=== PATIENT | female | born 1985 | race Caucasian/White ===

== ENCOUNTER 2024-07-27 13:20 | Inpatient (IN) | payer MEDICAID, SELFPAY ==
[~2024-07-27] VITALS: Ht 170.2 cm; Wt 79.2 kg
[2024-07-27 14:15] LABS: HEMATOCRIT 39.4 % (36.0-47.0); HEMOGLOBIN 12.9 g/dl (12.0-15.5); MEAN CORPUSCULAR HEMOGLOBIN 28.7 pg (27.0-33.0); MEAN CORPUSCULAR HGB CONC 32.7 g/dl (32.0-36.5); MEAN CORPUSCULAR VOLUME 87.6 fl (80.0-96.0); PLATELET COUNT, AUTOMATED 239 10^3/uL (150-450); WHITE BLOOD COUNT 3.6 10^3/uL (4.0-10.0)
[2024-07-27 14:46] LABS: AMPHETAMINES LEVEL URINE NEGATIVE (NEGATIVE); BARBITURATES URINE NEGATIVE (NEGATIVE); BENZODIAZEPINES URINE NEGATIVE (NEGATIVE); ETHYL ALCOHOL (ETHANOL) < 0.003 % (0.000-0.010)
[2024-07-27 14:47] LABS: COCAINE METABOLITE URINE NEGATIVE (NEGATIVE); METHADONE URINE NEGATIVE (NEGATIVE); OPIATES URINE NEGATIVE (NEGATIVE); PHENCYCLIDINE URINE NEGATIVE (NEGATIVE)
[2024-07-27 14:48] LABS: ALBUMIN 3.9 G/DL (3.2-5.2); ALKALINE PHOSPHATASE 92 U/L (35-104); ALT/SGPT 16 U/L (7.0-40); AST/SGOT 20 U/L (<34); BILIRUBIN,DIRECT 0.1 MG/DL (<0.4); BILIRUBIN,TOTAL 0.4 MG/DL (0.3-1.2); BLOOD UREA NITROGEN 15 MG/DL (9-23); CALCIUM LEVEL 8.6 MG/DL (8.5-10.1); CARBON DIOXIDE LEVEL 25 MMOL/L (20-31); CHLORIDE LEVEL 106 MMOL/L (98-107); CREATININE FOR GFR 0.65 MG/DL (0.55-1.30); GLOMERULAR FILTRATION RATE > 60.0 (>60); GLUCOSE, FASTING 85 MG/DL (60-100); POTASSIUM SERUM 4.1 MMOL/L (3.5-5.1); SALICYLATE LEVEL < 3.0 MG/DL (<30); SODIUM LEVEL 142 MMOL/L (136-145); TOTAL PROTEIN 7.5 G/DL (5.7-8.2)
[2024-07-27 14:49] LABS: CANNABINOIDS URINE POSITIVE (NEGATIVE)
[2024-07-27 14:51] LABS: THYROID STIMULATING HORMONE 2.184 uIU/ML (0.55-4.78)
[2024-07-27] MEDS ORDERED: HOME MED LIST COMPLETE! XX SCH (18:30)
[2024-07-27 18:32] LABS: HCG, SERUM QUALITATIVE NEGATIVE (NEGATIVE)
[2024-07-27] MEDS ORDERED: MOM 30ML SUSPENSION UDC PO PRN (19:20)
[2024-07-27] MEDS ORDERED: LORazepam 1 MG TAB PO PRN (19:20)
[2024-07-27] MEDS ORDERED: MAALOX 30 ML SUSP *UDC PO PRN (19:20)
[2024-07-27 21:00] VITALS: BP 111/89; TEMP 98; O2SAT 98
[2024-07-27] MEDS: traZODone 50 MG TAB PO PRN (21:32)
[2024-07-27] MEDS: ACETAMINOPHEN 325 MG TAB PO PRN (21:33)
[2024-07-28 06:32] VITALS: BP 108/59; TEMP 97.9; O2SAT 99
[2024-07-28] MEDS: NICOTINE 14 MG/24 HR TRANSDERMAL TD SCH (09:00)
[2024-07-28] MEDS: ESCITALOPRAM OXALATE 10 MG TAB (LEXAPRO) PO SCH (09:59)
[2024-07-28] MEDS ORDERED: CEPACOL LOZENGE PO PRN (13:25)
[2024-07-28] MEDS: LORATADINE 10 MG TAB PO ONE (14:39)
[2024-07-28 15:37] VITALS: BP 108/81; TEMP 97.4; O2SAT 98
[2024-07-28] MEDS: IBUPROFEN 400MG TAB PO PRN (19:05)
[2024-07-29 06:36] VITALS: BP 125/59; TEMP 97.9; O2SAT 97
[2024-07-29] MEDS: OLANZapine ORAL DISINTEGRATING TAB 5MG PO PRN (08:18)
[2024-07-29] MEDS: LORATADINE 10 MG TAB PO SCH (08:19)
[2024-07-29 16:48] VITALS: BP 104/63; TEMP 96.9; O2SAT 98
[2024-07-30 06:32] VITALS: BP 100/58; TEMP 97.6; O2SAT 99
[2024-07-30 15:47] VITALS: BP 132/83; TEMP 98.8; O2SAT 100
[2024-07-31 06:31] VITALS: BP 102/55; TEMP 97.5; O2SAT 98
[2024-07-31 15:17] VITALS: BP 109/71; TEMP 98.9; O2SAT 98
[2024-08-01 06:45] VITALS: BP 113/55; TEMP 97.4; O2SAT 98
[2024-08-01 15:16] VITALS: BP 129/75; TEMP 98.3; O2SAT 100
[2024-08-02 07:16] VITALS: BP 104/87; TEMP 98; O2SAT 97
[2024-08-02 17:44] VITALS: BP 126/67; TEMP 97.5; O2SAT 99
[2024-08-02] MEDS: LURASIDONE 20 MG TAB (LATUDA) PO SCH (18:08)
[2024-08-03 06:53] VITALS: BP 110/54; TEMP 97; O2SAT 99
[2024-08-03 15:52] VITALS: BP 124/80; TEMP 98.6; O2SAT 100
[2024-08-03 21:30] VITALS: BP 124/80; TEMP 98.6; O2SAT 100
[2024-08-04 06:39] VITALS: BP 130/64; TEMP 97.5; O2SAT 97
[2024-08-04 15:28] VITALS: BP 122/79; TEMP 98.4; O2SAT 99
[2024-08-04] MEDS: diphenhydrAMINE 25MG CAP PO PRN (20:21)
[2024-08-05 06:30] VITALS: BP 104/54; TEMP 97.7; O2SAT 96
[2024-08-05] MEDS: LURASIDONE 20 MG TAB (LATUDA) PO SCH (17:59)
[2024-08-06 06:31] VITALS: BP 110/50; TEMP 97.6; O2SAT 98
[2024-08-06] MEDS ORDERED: TRAZ-252 PO (10:54)
[2024-08-06] MEDS ORDERED: LEXA1TAB PO (10:54)
[2024-08-06] MEDS ORDERED: LATU20TA PO (10:54)
== END 2024-08-06 14:18 | disposition home or self-care (01) | DRG 751 ==
LOC: M ED 13:20 → M ED INP 19:20 → M PSY 20:54
PROVIDERS: ADMIT Psychiatry & Neurology Neurology; ATTEND Psychiatry & Neurology Neurology
DX: F33.1 Major depressive disorder, recurrent, moderate (principal); F41.1 Generalized anxiety disorder; R45.851 Suicidal ideations; F43.10 Post-traumatic stress disorder, unspecified; F17.200 Nicotine dependence, unspecified, uncomplicated; J45.909 Unspecified asthma, uncomplicated; Z83.3 Family history of diabetes mellitus; Z62.810 Personal history of physical and sexual abuse in childhood; Z81.8 Family history of other mental and behavioral disorders; Z91.52 Personal history of nonsuicidal self-harm; Z88.8 Allergy status to other drugs, medicaments and biological substances

== ENCOUNTER 2024-08-29 10:15 | Inpatient (IN) | payer MEDICAID, OTHER ==
[~2024-08-29] VITALS: Ht 170.2 cm; Wt 83.2 kg
[~2024-08-29 10:15] MED LIST: LATU20TA PO; LEXA1TAB PO; TRAZ-252 PO
[2024-08-29 10:50] LABS: HEMATOCRIT 39.1 % (36.0-47.0); HEMOGLOBIN 12.6 g/dl (12.0-15.5); MEAN CORPUSCULAR HEMOGLOBIN 29.1 pg (27.0-33.0); MEAN CORPUSCULAR HGB CONC 32.2 g/dl (32.0-36.5); MEAN CORPUSCULAR VOLUME 90.3 fl (80.0-96.0); PLATELET COUNT, AUTOMATED 282 10^3/uL (150-450); RED BLOOD COUNT 4.33 10^6/uL (4.00-5.40); WHITE BLOOD COUNT 6.5 10^3/uL (4.0-10.0)
[2024-08-29 11:16] LABS: AMPHETAMINES LEVEL URINE NEGATIVE (NEGATIVE); BARBITURATES URINE NEGATIVE (NEGATIVE); BENZODIAZEPINES URINE NEGATIVE (NEGATIVE); COCAINE METABOLITE URINE NEGATIVE (NEGATIVE); METHADONE URINE NEGATIVE (NEGATIVE); OPIATES URINE NEGATIVE (NEGATIVE); PHENCYCLIDINE URINE NEGATIVE (NEGATIVE)
[2024-08-29 11:17] LABS: CANNABINOIDS URINE POSITIVE (NEGATIVE); ETHYL ALCOHOL (ETHANOL) 0.004 % (0.000-0.010)
[2024-08-29 11:19] LABS: ALBUMIN 3.9 G/DL (3.2-5.2); ALKALINE PHOSPHATASE 95 U/L (35-104); ALT/SGPT 18 U/L (7.0-40); AST/SGOT 16 U/L (<34); BILIRUBIN,DIRECT 0.1 MG/DL (<0.4); BILIRUBIN,TOTAL 0.4 MG/DL (0.3-1.2); BLOOD UREA NITROGEN 10 MG/DL (9-23); CALCIUM LEVEL 8.9 MG/DL (8.5-10.1); CARBON DIOXIDE LEVEL 27 MMOL/L (20-31); CHLORIDE LEVEL 105 MMOL/L (98-107); CREATININE FOR GFR 0.66 MG/DL (0.55-1.30); GLOMERULAR FILTRATION RATE > 60.0 (>60); GLUCOSE, FASTING 87 MG/DL (60-100); POTASSIUM SERUM 3.8 MMOL/L (3.5-5.1); SALICYLATE LEVEL < 3.0 MG/DL (<30); SODIUM LEVEL 140 MMOL/L (136-145); TOTAL PROTEIN 7.5 G/DL (5.7-8.2)
[2024-08-29 11:21] LABS: HCG, SERUM QUALITATIVE NEGATIVE (NEGATIVE)
[2024-08-29 11:22] LABS: THYROID STIMULATING HORMONE 3.252 uIU/ML (0.55-4.78)
[2024-08-29] MEDS ORDERED: TRAZ-252 PO (21:31)
[2024-08-29] MEDS ORDERED: LEXA1TAB PO (21:31)
[2024-08-29] MEDS ORDERED: LURA20TA PO (21:31)
[2024-08-29] MEDS ORDERED: HOME MED LIST COMPLETE! XX SCH (21:35)
[2024-08-30] MEDS: NICOTINE 14 MG/24 HR TRANSDERMAL TD SCH (09:00)
[2024-08-30] MEDS: ESCITALOPRAM OXALATE 10 MG TAB (LEXAPRO) PO SCH (09:09)
[2024-08-30] MEDS ORDERED: MAALOX 30 ML SUSP *UDC PO PRN (15:20)
[2024-08-30] MEDS ORDERED: MOM 30ML SUSPENSION UDC PO PRN (15:20)
[2024-08-30] MEDS ORDERED: OLANZapine 5 MG TAB PO PRN (15:20)
[2024-08-30] MEDS ORDERED: ACETAMINOPHEN 325 MG TAB PO PRN (15:20)
[2024-08-30] MEDS ORDERED: LORazepam 1 MG TAB PO PRN (15:20)
[2024-08-30] MEDS ORDERED: diphenhydrAMINE 25MG CAP PO PRN (15:20)
[2024-08-30] MEDS: LURASIDONE 20 MG TAB (LATUDA) PO SCH (20:11)
[2024-08-30] MEDS ORDERED: LURASIDONE HCL 40MG TAB (LATUDA) PO SCH (21:00)
[2024-08-31 06:38] VITALS: BP 110/55; TEMP 98; O2SAT 97
[2024-08-31] MEDS: ESCITALOPRAM OXALATE 10 MG TAB (LEXAPRO) PO SCH (08:58)
[2024-08-31] MEDS: ESCITALOPRAM OXALATE 10 MG TAB (LEXAPRO) PO ONE (09:44)
[2024-08-31 15:34] VITALS: BP 118/70; TEMP 98.1; O2SAT 100
[2024-08-31] MEDS ORDERED: ALBUTEROL 90 MCG/ACT 8GM HFA INHALER INH PRN (16:35)
[2024-08-31] MEDS: BREXPIPRAZOLE 0.5MG TABLET (REXULTI) PO SCH (20:12)
[2024-08-31] MEDS: CETIRIZINE (ZyrTEC) 10 MG TAB PO SCH (20:12)
[2024-09-01 06:32] VITALS: BP 100/53; TEMP 97.5; O2SAT 96
[2024-09-01] MEDS: ESCITALOPRAM OXALATE 10 MG TAB (LEXAPRO) PO SCH (08:31)
[2024-09-01 10:42] LABS: CHOLESTEROL RISK RATIO 4.27 (<5); HDL CHOLESTEROL 41.6 MG/DL (>40); LDL CHOLESTEROL 110.4 MG/DL (<100); NON-HDL-C 136.4 MG/DL
[2024-09-01 16:53] VITALS: BP 127/72; TEMP 97.4; O2SAT 97
[2024-09-02 06:25] VITALS: BP 102/53; TEMP 97.8; O2SAT 96
[2024-09-02 15:55] VITALS: BP 118/81; TEMP 97.9; O2SAT 99
[2024-09-03 06:43] VITALS: BP 107/54; TEMP 97.4; O2SAT 97
[2024-09-03 17:31] VITALS: BP 122/74; TEMP 97.8; O2SAT 97
[2024-09-03] MEDS: traZODone 50 MG TAB PO PRN (20:13)
[2024-09-04 06:41] VITALS: BP 95/51; TEMP 97.3; O2SAT 97
[2024-09-04 15:44] VITALS: BP 131/77; TEMP 98.4; O2SAT 96
[2024-09-05 06:31] VITALS: BP 128/69; TEMP 97.8; O2SAT 97
[2024-09-05 15:48] VITALS: BP 122/74; TEMP 98.4; O2SAT 98
[2024-09-06 06:44] VITALS: BP 107/55; TEMP 97.4; O2SAT 98
[2024-09-06] MEDS ORDERED: REXU1TAB2 PO (10:44)
[2024-09-06] MEDS ORDERED: VENTAER INH (10:44)
[2024-09-06] MEDS ORDERED: HYDR-643 PO (10:44)
[2024-09-06] MEDS ORDERED: LEXA1TAB PO (10:44)
[2024-09-06] MEDS ORDERED: CETI10TA PO (10:44)
== END 2024-09-06 14:00 | disposition home or self-care (01) | DRG 754 ==
LOC: M ED 10:15 → M ED INP 08-30 15:16 → M PSY 08-30 16:14
PROVIDERS: ADMIT Internal Medicine; ATTEND Psychiatry & Neurology Psychiatry
DX: F32.A Depression, unspecified (principal); F41.1 Generalized anxiety disorder; F17.200 Nicotine dependence, unspecified, uncomplicated; Z79.899 Other long term (current) drug therapy; Z88.8 Allergy status to other drugs, medicaments and biological substances; Z91.52 Personal history of nonsuicidal self-harm; R45.851 Suicidal ideations

== ENCOUNTER → 2024-09-20 | Outpatient (REF) | payer OTHER, MEDICAID ==
[~2024-09-20] MED LIST changes: +CETI10TA PO; +HYDR-643 PO; +LURA20TA PO; +REXU1TAB2 PO; +VENTAER INH
[2024-09-20 19:08] LABS: BASO # 0.1 10^3/uL (0.0-0.2); BASO % 0.9 % (0.0-1.0); EOS # 0.5 10^3/uL (0.0-0.5); EOS % 7.2 % (0.0-3.0); HEMATOCRIT 37.5 % (36.0-47.0); HEMOGLOBIN 11.8 g/dl (12.0-15.5); LYMPH # 2.1 10^3/uL (1.5-5.0); LYMPH % 27.8 % (24.0-44.0); MEAN CORPUSCULAR HEMOGLOBIN 29.1 pg (27.0-33.0); MEAN CORPUSCULAR HGB CONC 31.5 g/dl (32.0-36.5); MEAN CORPUSCULAR VOLUME 92.6 fl (80.0-96.0); MONO # 0.5 10^3/uL (0.0-0.8); MONO % 6.6 % (2.0-8.0); NEUTROPHILS # 4.2 10^3/uL (1.5-8.5); NEUTROPHILS % 57.2 % (36.0-66.0); PLATELET COUNT, AUTOMATED 276 10^3/uL (150-450); RED BLOOD COUNT 4.05 10^6/uL (4.00-5.40); WHITE BLOOD COUNT 7.4 10^3/uL (4.0-10.0)
[2024-09-20 19:32] LABS: ALBUMIN 3.6 G/DL (3.2-5.2); ALKALINE PHOSPHATASE 106 U/L (35-104); ALT/SGPT 22 U/L (7.0-40); AST/SGOT 17 U/L (<34); BILIRUBIN,TOTAL 0.3 MG/DL (0.3-1.2); BLOOD UREA NITROGEN 9 MG/DL (9-23); CALCIUM LEVEL 8.4 MG/DL (8.5-10.1); CARBON DIOXIDE LEVEL 27 MMOL/L (20-31); CHLORIDE LEVEL 107 MMOL/L (98-107); CHOLESTEROL LEVEL 164 MG/DL (<200); CHOLESTEROL RISK RATIO 3.98 (<5); CREATININE FOR GFR 0.64 MG/DL (0.55-1.30); GLOMERULAR FILTRATION RATE > 60.0 (>60); GLUCOSE, FASTING 77 MG/DL (60-100); HDL CHOLESTEROL 41.2 MG/DL (>40); LDL CHOLESTEROL 97.2 MG/DL (<100); NON-HDL-C 122.8 MG/DL; POTASSIUM SERUM 4.1 MMOL/L (3.5-5.1); SODIUM LEVEL 141 MMOL/L (136-145); TOTAL PROTEIN 6.9 G/DL (5.7-8.2); TRIGLYCERIDES LEVEL 128 MG/DL (<150)
[2024-09-20 19:33] LABS: THYROID STIMULATING HORMONE 2.412 uIU/ML (0.55-4.78)
[2024-09-20 20:52] LABS: HEMOGLOBIN A1c 4.5 % (4.0-6.0)
== END ==
LOC: M LAB REF 18:16
PROVIDERS: ATTEND Nurse Practitioner Family
DX: E66.9 Obesity, unspecified (principal); Z11.9 Encounter for screening for infectious and parasitic diseases, unspecified

== ENCOUNTER 2024-09-30 16:08 | Emergency (ER) | payer OTHER ==
[~2024-09-30] VITALS: Ht 170.2 cm; Wt 83.2 kg
[2024-09-30 17:20] LABS: HEMATOCRIT 35.8 % (36.0-47.0); HEMOGLOBIN 11.5 g/dl (12.0-15.5); MEAN CORPUSCULAR HEMOGLOBIN 29.2 pg (27.0-33.0); MEAN CORPUSCULAR HGB CONC 32.1 g/dl (32.0-36.5); MEAN CORPUSCULAR VOLUME 90.9 fl (80.0-96.0); PLATELET COUNT, AUTOMATED 233 10^3/uL (150-450); RED BLOOD COUNT 3.94 10^6/uL (4.00-5.40); WHITE BLOOD COUNT 7.5 10^3/uL (4.0-10.0)
[2024-09-30 17:42] LABS: AMPHETAMINES LEVEL URINE NEGATIVE (NEGATIVE); BARBITURATES URINE NEGATIVE (NEGATIVE); BENZODIAZEPINES URINE NEGATIVE (NEGATIVE); COCAINE METABOLITE URINE NEGATIVE (NEGATIVE); METHADONE URINE NEGATIVE (NEGATIVE); OPIATES URINE NEGATIVE (NEGATIVE); PHENCYCLIDINE URINE NEGATIVE (NEGATIVE)
[2024-09-30 17:44] LABS: ETHYL ALCOHOL (ETHANOL) < 0.003 % (0.000-0.010)
[2024-09-30 17:46] LABS: ALBUMIN 3.7 G/DL (3.2-5.2); ALKALINE PHOSPHATASE 102 U/L (35-104); ALT/SGPT 24 U/L (7.0-40); AST/SGOT 22 U/L (<34); BILIRUBIN,DIRECT < 0.1 MG/DL (<0.4); BILIRUBIN,TOTAL 0.3 MG/DL (0.3-1.2); BLOOD UREA NITROGEN 19 MG/DL (9-23); CALCIUM LEVEL 8.4 MG/DL (8.5-10.1); CARBON DIOXIDE LEVEL 24 MMOL/L (20-31); CHLORIDE LEVEL 106 MMOL/L (98-107); CREATININE FOR GFR 0.63 MG/DL (0.55-1.30); GLOMERULAR FILTRATION RATE > 60.0 (>60); GLUCOSE, FASTING 87 MG/DL (60-100); SALICYLATE LEVEL < 3.0 MG/DL (<30); SODIUM LEVEL 137 MMOL/L (136-145); TOTAL PROTEIN 7.2 G/DL (5.7-8.2)
[2024-09-30 17:49] LABS: THYROID STIMULATING HORMONE 2.141 uIU/ML (0.55-4.78)
[2024-09-30 17:51] LABS: CANNABINOIDS URINE POSITIVE (NEGATIVE); HCG, SERUM QUALITATIVE NEGATIVE (NEGATIVE)
[2024-09-30] MEDS ORDERED: REXU1TAB2 PO (20:41)
[2024-09-30] MEDS ORDERED: TRAZ-186 PO (20:41)
[2024-09-30] MEDS ORDERED: HYDR-643 PO (20:41)
[2024-09-30] MEDS ORDERED: ZYRT10TA12 PO (20:41)
[2024-09-30] MEDS ORDERED: ALBU8.5H INH (20:41)
[2024-09-30] MEDS ORDERED: HOME MED LIST COMPLETE! XX SCH (20:45)
[2024-09-30 22:17] LABS: APPEARANCE, URINE CLEAR (CLEAR); BACTERIA, URINE AUTO NEGATIVE (NEGATIVE); BILIRUBIN, URINE AUTO NEGATIVE (NEGATIVE); BLOOD, URINE BLOOD NEGATIVE (NEGATIVE); COLOR, URINE YELLOW (YELLOW); GLUCOSE, URINE (UA) AUTO NEGATIVE (NEGATIVE); KETONE, URINE AUTO NEGATIVE (NEGATIVE); LEUKOCYTE ESTERASE, URINE AUTO NEGATIVE (NEGATIVE); MUCUS, URINE SMALL (NEGATIVE); NITRITE, URINE AUTO NEGATIVE (NEGATIVE); PROTEIN, URINE AUTO NEGATIVE (NEGATIVE); RBC, URINE AUTO 1 /HPF (0-3); SPECIFIC GRAVITY URINE AUTO 1.019 (1.002-1.035); SQUAMOUS EPITHELIAL CELL UR AU 0 /HPF (0-6); UROBILINOGEN, URINE AUTO 0.2 mg/dL (0.0-2.0); WBC, URINE AUTO 0 /HPF (0-3)
[2024-10-01 11:42] VITALS: BP 117/66; TEMP 98.7; O2SAT 98
== END 2024-10-01 11:51 ==
LOC: M ED 16:08
DX: R45.851 Suicidal ideations (principal); F31.9 Bipolar disorder, unspecified; Z88.8 Allergy status to other drugs, medicaments and biological substances; Z91.09 Other allergy status, other than to drugs and biological substances; Z79.51 Long term (current) use of inhaled steroids; Z79.899 Other long term (current) drug therapy